=== PATIENT | female | born 1945 | race Caucasian/White ===

== ENCOUNTER → 2023-09-20 | Outpatient (CLI) | payer MEDICARE, MEDICAID ==
[~2023-09-20] MED LIST: DEXL60CA3 PO; DICL100G15 TP; FLUO20CA39 PO; Hydrocodone Bit/Acetaminophen PO; LISI20TA28 PO; MULT-1141 PO
== END | disposition home or self-care (01) ==
LOC: RAD 08:07
PROVIDERS: ATTEND Family Medicine
DX: M54.6 Pain in thoracic spine (principal)
CPT/HCPCS: 72074